=== PATIENT | female | born 1975 | race Caucasian/White ===

== ENCOUNTER 2018-06-07 01:52 | Observation (INO) ==
[2018-06-07] MEDS ORDERED: IOPAMIDOL 100 ML BOTTLE IV ONE (01:53)
[2018-06-07] MEDS ORDERED: KETOROLAC 30 MG/ML VIAL IV ONE (02:08)
[2018-06-07] MEDS ORDERED: 0.9 % SODIUM CHLORIDE 1,000 ML IV ONE ×2 (02:08→04:04)
[2018-06-07] MEDS ORDERED: ONDANSETRON 4 MG/2 ML VIAL IV ONE ×2 (02:08→05:54)
[2018-06-07 03:21] LABS: Mean Cell Volume 62.6 fL (80.0-100.0); Mean Corpuscular HGB Conc 28.8 g/dL (31.0-36.0); Platelet Count 343 K/mcL (140-440); RBC 4.13 M/mcL (4.00-5.20); Red Cell Distribution Width 20.9 % (11.5-14.5)
[2018-06-07 03:22] LABS: ALT/SGPT 26 U/l (0-40); Albumin/Globulin Ratio 1.6 (1.0-2.3); Alkaline Phosphatase 121 U/L (39-117); Blood Urea Nitrogen 11 mg/dl (6-20); Lipase 15 U/L (7-60)
[2018-06-07] MEDS ORDERED: PANTOPRAZOLE 40 MG VIAL IV ONE ×2 (03:30→08:42)
[2018-06-07 03:39] LABS: Basophils % (Auto) 0 % (0.0-2.0)
--- NOTE | 2018-06-07 04:18 | Emergency Department Note ---
Nausea/Vomiting/Diarrhea HPI - General Chief complaint: Nausea/Vomiting/Diarrhea Stated complaint: Nausea/Diarrhea Time Seen by Provider: 06/07/18 03:35 - History of Present Illness HPI Narrative: This pleasant 43-year-old female presents with epigastric area pain in the few dark stools. Her pain is described as aching and burning in nature. She is also felt rather dehydrated and very thirsty for this last week cannot seem to get enough water to drink. In the last 1-1/2 days she has had some diarrhea up to 6 times per day. She takes omeprazole chronically 80 mg twice daily; has been taking this from [id number] due to changes in her insurance and changes in her primary care. She reports a history of really bad ulcers that. She has seen Dr. Pyle. She has a history of anemia. She has felt sweaty during the night illness last night. No fevers. REVIEW OF SYSTEMS: No chest pains. No shortness of breath. Has vomited 3 times in the last 6 hours with some dry heaves. Denies dysuria. Has had some new low back pain or flank area pain that feels like kidney pain Has frequent migraine headaches "all the time". She does feel weak now. No dizziness or imbalance. No anxiety or depression. - Related Data Home Medications Medication Instructions Recorded Confirmed No Known Home Meds 06/07/18 06/07/18 Allergies Allergy/AdvReac Type Severity Reaction Status Date / Time Penicillins Allergy Severe Hives Verified 06/07/18 01:57 Past Medical History - Past Medical History [facility] Narrative: Past Surgical History (Last Updated 06/07/18 @ 04:25 by Kendall Martinez DO) S/P appendectomy (Acute) Medical History (Last Updated 06/07/18 @ 04:14 by Kendall Martinez DO) Cigarette smoker (Chronic) GERD (gastroesophageal reflux disease) (Chronic) PUD (peptic ulcer disease) (Chronic) Anemia (Chronic) Headache, migraine (Chronic) History of diverticulitis (Chronic) History of pyelonephritis (Chronic) Medical history: Reports: other (Denies pancreatitis and kidney stones and gallbladder disease.). Denies: asthma, cancer, DM, hypertension, hypothyroidis m, renal disease Psychiatric history: Denies: anxiety, depression Surgical history ED: Reports: appendectomy - Social History smoking status: Current every day smoker (1 pack/day) Alcohol use: Reports: None Drug use: Reports: none. Denies: marijuana Physical Exam Limitations: no limitations General appearance: alert, in no apparent distress Head: atraumatic, normocephalic Eye: Present: normal appearance, PERRL, EOMI. Absent: scleral icterus, conjunctival injection ENT: normal oropharynx, mucous membranes dry (slight or mildly) Neck: Present: trachea midline. Absent: lymphadenopathy, thyromegaly Respiratory: Present: normal lung sounds bilaterally. Absent: respiratory distress, wheezes, stridor, accessory muscle use, prolonged expiratory phase Cardiovascular: Present: regular rate, normal rhythm. Absent: systolic murmur, diastolic murmur Abdominal: Present: soft, tenderness. Absent: distention, guarding, rebound, rigidity, organomegaly, mass Abdominal tenderness: Present: epigastrium, moderate Rectal: Present: normal rectal tone, heme (-) stool, other (Has a collarette of puffy tissue around the anal opening without erythema and not specifically he morrhoidal segmental lesion.) Extremities: Absent: pedal edema, pretibial edema, calf tenderness Back: Absent: CVA tenderness (R), CVA tenderness (L), spinous process tenderness Neurological: Present: alert, oriented X3 Psychiatric: Present: normal affect, normal mood, serious Skin: Present: warm, dry Course Vital Signs Temperature 97.7 F 06/07/18 01:53 Pulse Rate 72 06/07/18 01:53 Respiratory Rate 22 06/07/18 01:53 Blood Pressure 144/61 06/07/18 01:53 Pulse Oximetry (%) 98 06/07/18 01:53 Temperature 97.7 F 06/07/18 01:53 Pulse Rate 78 06/07/18 08:46 Respiratory Rate 16 06/07/18 08:46 Blood Pressure 140/73 06/07/18 08:46 Pulse Oximetry (%) 97 06/07/18 08:46 Nausea/Vomiting/Diarrhea - [facility] Narrative Medical decision making narrative: 3:37 AM Obvious severe anemia with microcytosis and epigastric area pain on background history of reported severe PUD. Needs admission for red blood cells infusions and monitoring and probable upper scope. C. difficile also ordered. Also UA. 4:15 AM I spoke with Dr. King who requested CT scan abdomen and pelvis to be done first before accepting for admission. INR is 1.0. 6:25 AM Call from radiologist includes that patient has 6.3 cm cystic lesion on the right ovary that is not all that well characterized. There is small to moderate free fluid in various areas. Suggestion is to obtain pelvic ultrasound and Ca- 125. Patient also recently needed additional pain control and morphine 2 mg was given. 7:45 AM approximately Ultrasound demonstrates a 7 cm right ovarian cyst with one septation. There is extra abnormal fluid in the pelvis of uncertain etiology or cause or source. 8:40 AM A POC Chem-8 was done to recheck her hematocrit and has has gone from 25.9 down to 24.0; fluids and at this point are not normal saline 1200 cc. I spoke with Stacey Haskins regarding this patient and they, GI, with Dr. Platt, will try to see patient and fit her in. Will try to have hospitalist receive this patient for inpatient care, pending now is his return call. A second bolus of Protonix 80 mg IV ordered. - Medical Records Medical records reviewed: Yes I reviewed the patient's medical records. - Lab Data Lab results reviewed: Yes I reviewed the patient's lab results. Result diagrams: 06/07/18 02:15 06/07/18 02:15 Lab Results 06/07/18 06/07/18 06/07/18 Range/Units 02:15 02:15 04:10 WBC 7.2 (4.5-11.0) K/mcL RBC 4.13 (4.00-5.20) M/mcL Hgb 7.5 L (12.0-15.0) g/dL Hct 25.9 L (36.0-48.0) % POC Hct (36.0-48.0) % MCV 62.6 L (80.0-100.0) fL MCH 18.1 L (26.0-34.0) pg MCHC 28.8 L (31.0-36.0) g/dL RDW 20.9 H (11.5-14.5) % Plt Count 343 (140-440) K/mcL MPV 7.9 (7.4-10.4) fL Gran % 74.0 (38.0-78.0) % Lymph % (Auto) 17.0 (15.5-49.0) % Rawlins % (Auto) 5.0 (1.0-12.0) % Eos % (Auto) 4.0 (0.0-7.0) % Baso % (Auto) 0 (0.0-2.0) % POC PT 11.8 L (11.9-14.5) sec POC INR 1.0 (0.9-1.2) POC Sodium (133-145) mmol/L Sodium 139 (133-145) mmol/L POC Potassium (3.3-5.1) mmol/L Potassium 3.7 (3.3-5.1) mmol/L POC Chloride (96-108) mmol/L Chloride 100 (96-108) mmol/L Carbon Dioxide 25 (22-30) mmol/L POC Total CO2 (22-30) mmol/L Anion Gap 14.0 (8-16) POC BUN (6-20) mg/dl BUN 11 (6-20) mg/dl Creatinine 0.5 L (0.6-1.1) mg/dl POC Creatinine (0.6-1.1) mg/dl GFR Calculation 120 Glucose 104 (70-105) mg/dL POC Glucose (70-105) mg/dL Calcium 9.1 (8.6-10.4) mg/dl POC WB Ioniz Calcium (1.16-1.32) mmol/L Total Bilirubin 0.3 (0.0-1.0) mg/dL AST 15 (0-37) U/l ALT 26 (0-40) U/l Alkaline Phosphatase 121 H (39-117) U/L Total Protein 6.5 (5.9-8.4) gm/dL Albumin 4.0 (3.2-5.2) gm/dL Globulin 2.5 (2.2-3.7) gm/dL Albumin/Globulin Ratio 1.6 (1.0-2.3) Lipase 15 (7-60) U/L 06/07/18 Range/Units 08:17 WBC (4.5-11.0) K/mcL RBC (4.00-5.20) M/mcL Hgb (12.0-15.0) g/dL Hct (36.0-48.0) % POC Hct 24.0 L (36.0-48.0) % MCV (80.0-100.0) fL MCH (26.0-34.0) pg MCHC (31.0-36.0) g/dL RDW (11.5-14.5) % Plt Count (140-440) K/mcL MPV (7.4-10.4) fL Gran % (38.0-78.0) % Lymph % (Auto) (15.5-49.0) % Rawlins % (Auto) (1.0-12.0) % Eos % (Auto) (0.0-7.0) % Baso % (Auto) (0.0-2.0) % POC PT (11.9-14.5) sec POC INR (0.9-1.2) POC Sodium 139 (133-145) mmol/L Sodium (133-145) mmol/L POC Potassium 3.8 (3.3-5.1) mmol/L Potassium (3.3-5.1) mmol/L POC Chloride 104 (96-108) mmol/L Chloride (96-108) mmol/L Carbon Dioxide (22-30) mmol/L POC Total CO2 23 (22-30) mmol/L Anion Gap (8-16) POC BUN 8 (6-20) mg/dl BUN (6-20) mg/dl Creatinine (0.6-1.1) mg/dl POC Creatinine 0.4 L (0.6-1.1) mg/dl GFR Calculation Glucose (70-105) mg/dL POC Glucose 78 (70-105) mg/dL Calcium (8.6-10.4) mg/dl POC WB Ioniz Calcium 1.02 L (1.16-1.32) mmol/L Total Bilirubin (0.0-1.0) mg/dL AST (0-37) U/l ALT (0-40) U/l Alkaline Phosphatase (39-117) U/L Total Protein (5.9-8.4) gm/dL Albumin (3.2-5.2) gm/dL Globulin (2.2-3.7) gm/dL Albumin/Globulin Ratio (1.0-2.3) Lipase (7-60) U/L - Radiology Data Radiology results reviewed: Yes I reviewed the patient's radiology results. Disposition Pt seen by SITE MONITOR/PA only: No Clinical Impression: Epigastric pain, History of peptic ulcer disease, Peritoneal fluid abnormality Ovarian cyst Qualifiers: Laterality: right Qualified Code(s): N83.201 - Unspecified ovarian cyst, right side Summary: See MEDICAL DECISION MAKING above. I spoke with Dr. King who is accepting this patient for inpatient management. GI will be consulting and are aware. Disposition: Xfer As Inpt ([facility]) Condition: Fair Referrals: Hernandez Davila ARNP [Nurse Practitioner] -
--- NOTE | 2018-06-07 09:51 | Internal Medicine Consult Note ---
Medical - CN: HPI - Data of Consult Patient: new to practice Consult date: 06/07/18 Requesting physician: Kendall Martinez Primary Care Provider: Robina John Family Provider: Robina John - Consult Narrative Reason for consult: Epigastric pain, anemia History of present illness: Ms. Alvarado is a 43 year old F smoker and poorly controlled migraineur with a history of chronic peptic ulcer disease followed by Dr. Butcher who presented to ED for epigastric pain, nausea and vomiting, and increasing trouble with nocturnal reflux despite taking omeprazole 40mg twice daily. Hgb 7.5 with microcytosis but there was not enough stool in the rectal vault to perform FOBT. She complains of burning, stabbing epigastric pain that radiates to the back and is exacerbated by eating. She is constantly nauseated and occasionally vomits bilious emesis. She denies any hematemesis, melena. She denies ASA/NSAID use. She has had ulcers for the last 6 years or so and tells me she was treated for UGI bleed in [place] with empiric H. pylori treatment and was told by Dr. Butcher she "makes too much acid". She is not aware whether or not she has been diagnosed with Wellington Escalante syndrome. She suffers from chronic intermittent diarrhea, twice weekly with up to 2 loose BMs daily. She uses Imodium. She apparently had a colonoscopy 7-8 years ago; I will attempt to find those records. She occasionally sees red blood mixed with bowel movements. Weight has been stable. She is amenorrheic. She took Depo Provera for 11 years and discontinued after her divorce. Her menstrual cycle did not return. Migraine is poorly controlled. She has nearly constant migraine. She has previously tried and failed Imitrex ("allergic"), Topamax ("made me a lunatic"), amitriptyline ("didn't work"). CC: All systems: reviewed and no additional remarkable complaints except as stated Review of systems: see HPI Medical - CN: PMH Medical history: Migraine, peptic ulcer disease Surgical history: Appendectomy Pertinent family history: Mother with iritis Social history: . Works as an assistant athletic trainer. Does not use alcohol. Smokes a pack of cigarettes daily. Denies recreational drug use. Medical - CN: Meds Home Medications Medication Instructions Recorded Confirmed Type No Known Home Meds 06/07/18 06/07/18 History Allergies Allergy/AdvReac Type Severity Reaction Status Date / Time Penicillins Allergy Severe Hives Verified 06/07/18 01:57 Medical - CN: Exam - Constitutional Vitals: Temp Pulse Resp BP Pulse Ox 97.7 F 67 15 125/83 96 06/07/18 01:53 06/07/18 09:32 06/07/18 09:32 06/07/18 09:32 06/07/18 09:32 General appearance: average body habitus, cooperative, mild distress - Head Head exam: Present: atraumatic, normal inspection, normocephalic - ENT ENT exam: Present: mucous membranes dry - Neck Neck exam: Present: normal inspection - Respiratory Respiratory exam: Present: normal respiratory exam, CTAB - Cardiovascular Cardiovascular exam: Present: normal rate and rhythm. Absent: gallop, rubs, systolic murmur - GI/Abdominal GI/Abdominal exam: Present: normal bowel sounds, soft, tenderness. Absent: hernia, organomegaly, rebound, rigid Additional comments: Mild epigastric and lower abdominal tenderness. No peritoneal signs. - Neurological Exam Neurological exam: Present: alert, oriented X3 - Psychiatric Additional comments: Defensive during interview - Skin Skin exam: Present: dry, intact, pallor, warm. Absent: diaphoretic Medical - CN: Result - Labs CBC & Chem 7: 06/07/18 02:15 06/07/18 02:15 Labs: Short CBC 06/07/18 Range/Units 02:15 WBC 7.2 (4.5-11.0) K/mcL Hgb 7.5 L (12.0-15.0) g/dL Hct 25.9 L (36.0-48.0) % Plt Count 343 (140-440) K/mcL BMP 06/07/18 02:15 Sodium 139 Potassium 3.7 Chloride 100 Carbon Dioxide 25 BUN 11 Creatinine 0.5 L Glucose 104 Calcium 9.1 Liver Function 06/07/18 Range/Units 02:15 Total Bilirubin 0.3 (0.0-1.0) mg/dL AST 15 (0-37) U/l ALT 26 (0-40) U/l Alkaline Phosphatase 121 H (39-117) U/L Albumin 4.0 (3.2-5.2) gm/dL Medical - CN: A/P (1) Epigastric pain Status: Acute (2) Anemia Problem details: chronic or recurrent Status: Chronic Assessment and plan: We will further evaluate her epigastric pain and anemia with EGD. Recurrent peptic ulcer disease, celiac, Crohn's, abdominal migraine are on the differential among others. We will check a fasting gastrin (allowing for some elevation while on PPI) and salicylate level. We will obtain small bowel biopsies to check for malabsorption, specifically celiac disease. If the above studies are unremarkable, colonoscopy and Pill CAm will be undertaken. In light of her history of peptic ulcer disease, tobacco cessation was encouraged. She will be admitted following EGD and we will follow her along with Dr. King.
--- NOTE | 2018-06-07 10:07 | Internal Med History&Physical ---
Medical - H&P: HPI Patient information: Note initiated : 06/07/18 at 10:04 am Service Date, if different from initiated Date: [] Patient: Emma Alvarado a 43 y/o F admitted on for Nausea/Diarrhea. Chief Complaint: [] History of present illness: Ms. Alvarado is a 43 year old F with history of chronic peptic ulcer disease follows with Dr. Pyle, history of chronic migraines, presents to the emergency room for evaluation of abdominal pain since early this morning. Pain started last week she has been trying to control it with diet as well as using [id number] omeprazole. Pain is epigastric in nature burning stabbing it into the back moderate to severe worse with eating spicy food helps with some local heat as well as omeprazole. Patient also noticed some dark brown stools, she also had some nausea vomiting but no blood in the vomitus, last bowel movement had some blood in it. The patient denies any fever chills cough chest pain shortness of breath, she has chronic headaches no change in vision denies any urinary complaints no new back pain no new joint pain skin rashes. No behavioral psychiatric issues reported. In the ER on presentation patient was hemodynamically stable, hemoglobin was 7 .5, around 2 g drop since a year ago. CT abdomen and pelvis was done which is showing some free fluid in the pelvis, and an ovarian cyst official report is pending, pelvic ultrasound was advised by the radiologist it seems in the ED caudate and according to the note it shows an ovarian cyst with single septae. Patient received 1 unit of blood in the ER, hematocrit in the point of care did not change, patient was admitted to the hospital for further management GI was consulted in the ED. Patient was getting a second unit of blood. 80 mg of pantoprazole x2 have been given in the ED All systems: reviewed and no additional remarkable complaints except as stated (as per hpi rest negative) Medical - H&P: PMH Medical history: Medical History (Last Updated 06/07/18 @ 04:14 by Kendall Martinez DO) Cigarette smoker (Chronic) GERD (gastroesophageal reflux disease) (Chronic) PUD (peptic ulcer disease) (Chronic) Anemia (Chronic) Headache, migraine (Chronic) History of diverticulitis (Chronic) History of pyelonephritis (Chronic) Surgical history: Past Surgical History (Last Updated 06/07/18 @ 04:25 by BRE Wallace S/P appendectomy (Acute) Family history: reviewed and not pertinent Social history: smoker denie recreational drug use denies etoh use Medical - H&P: Meds Home Medications Medication Instructions Recorded Confirmed Type No Known Home Meds 06/07/18 06/07/18 History Allergies Allergy/AdvReac Type Severity Reaction Status Date / Time Penicillins Allergy Severe Hives Verified 06/07/18 01:57 Medical - H&P: Exam - Constitutional Vitals: Temp Pulse Resp BP Pulse Ox 97.7 F 83 16 119/72 95 06/07/18 01:53 06/07/18 09:47 06/07/18 09:47 06/07/18 09:47 06/07/18 09:47 Exam: GENERAL: The patient is a well-developed, well-nourished in no apparent distress. Is alert and oriented x3. VITAL SIGNS: Reviewed and as noted elsewhere. HEENT: Head is normocephalic and atraumatic. Extraocular muscles are intact. Pupils are equal, round, and reactive to light. Nares appeared normal. Mouth appears any without lesions. Mucous membranes are moist. NECK: Normal to inspection, Supple, No lymphadenopathy or thyromegaly. LUNGS: Air entry equal on both sides, no wheezing, crackles or rhonchi noted. No accessory muscles of respiration HEART: Regular rate and rhythm normal, S1 and S2 heard, no Gallop, S3 or Rub Noted, No Gross murmur heard. ABDOMEN: Soft, mild epigastric tenderness, but nondistended. Positive bowel sounds. No hepatosplenomegaly was noted. EXTREMITIES: No cyanosis, clubbing, rash, lesions or edema. NEUROLOGIC: Cranial nerves II through XII are grossly intact. Motor and Sensory System Grossly Intact PSYCHIATRIC: Normal affect, Normal Mood. Appropriate Behavior. SKIN: No ulceration or wounds noted, No jaundice, No rash noted. Medical - H&P: Reslt - Labs CBC & Chem 7: 06/07/18 02:15 06/07/18 02:15 Labs: Short CBC 06/07/18 Range/Units 02:15 WBC 7.2 (4.5-11.0) K/mcL Hgb 7.5 L (12.0-15.0) g/dL Hct 25.9 L (36.0-48.0) % Plt Count 343 (140-440) K/mcL BMP 06/07/18 02:15 Sodium 139 Potassium 3.7 Chloride 100 Carbon Dioxide 25 BUN 11 Creatinine 0.5 L Glucose 104 Calcium 9.1 Liver Function 06/07/18 Range/Units 02:15 Total Bilirubin 0.3 (0.0-1.0) mg/dL AST 15 (0-37) U/l ALT 26 (0-40) U/l Alkaline Phosphatase 121 H (39-117) U/L Albumin 4.0 (3.2-5.2) gm/dL Medical - H&P: A/P - Narrative A/P Narrative: a/P Abdominal pain GI bleed Peptic Ulcer disease Acute blood loss anemia Migraine headaches Plan admit to pcu status trend hb gi consulted, EGD today npo for now. IV PPI Gastrin level to be checked by GI salyciate level ordered by GI FUll code SCD for dvt prophylaxis.
[2018-06-07] MEDS ORDERED: NICOTINE 21 MG PATCH TOPICAL ONE ×2 (10:13→12:04)
[2018-06-07] MEDS ORDERED: KETAMINE HCL 50 MG/ML ML IV PRN ×2 (10:55→17:05)
[2018-06-07] MEDS ORDERED: MIDAZOLAM 2 MG/2 ML VIAL IV SCH ×2 (11:00→17:05)
[2018-06-07] MEDS ORDERED: PROPOFOL 200 MG/20 ML VIAL IV SCH ×2 (11:00→17:05)
[2018-06-07] MEDS ORDERED: ONDANSETRON 4 MG/2 ML VIAL IV PRN (12:04)
[2018-06-07] MEDS ORDERED: METOCLOPRAMIDE 10 MG/2 ML VIAL IV PRN (12:04)
[2018-06-07] MEDS ORDERED: NALOXONE HCL 0.4 MG/ML VIAL IV PRN ×2 (12:04→17:05)
[2018-06-07] MEDS ORDERED: ACETAMINOPHEN 650 MG/65 ML BOTTLE IV PRN ×2 (12:04→17:05)
[2018-06-07] MEDS ORDERED: HYDROmorphone 2 MG/ML VIAL IV PRN (13:06)
[2018-06-07] MEDS: 0.9 % SODIUM CHLORIDE 10 ML SYRINGE IV SCH ×3 (14:09→21:03)
[2018-06-07] MEDS ORDERED: PANTOPRAZOLE 40 MG VIAL IV SCH (17:00)
[2018-06-07] MEDS ORDERED: MISOPROSTOL 100 MCG TABLET PO SCH ×2 (17:00→21:00)
[2018-06-07] MEDS: HYDROmorphone 2 MG/ML VIAL IV PRN ×3 (17:13→22:10)
--- NOTE | 2018-06-07 18:13 | Cat Scan Report ---
CLINICAL INFORMATION: Abdominal pain and nausea COMPARISON: None. TECHNIQUE: Delayed 80 cc of Isovue-300 were injected intravenously, and 60 seconds later, 0.625 mm helical slices were obtained from the mid heart through the subtrochanteric regions. Following reconstruction, 2.5 mm sagittal, coronal and axial reformatted images were processed and reviewed at bone, lung and soft tissue windows. Five minutes later, 0.625 mm helical slices were obtained from the mid heart through the kidneys and viewed at soft tissue windows.The exam was performed using radiation dose optimization techniques including, but not limited to, automated exposure control, adjustment of the mA and/or kV according to patient size and use of iterative reconstruction technique. FINDINGS: Lung bases show minimal groundglass airspace disease in both posterior lower lobes as likely atelectasis. There are also small bilateral pleural effusions. Visualized heart is unremarkable. Images through the abdomen show the liver is normal in size but inhomogeneous attenuation with equivocal periportal edema. The gallbladder and bile ducts are normal CBD is 5 mm. Both kidneys, adrenal glands, spleen, pancreas and aorta, including aortic branches, are normal in size, configuration and attenuation without focal lesion. Imaging of the pelvis shows 7.1 cm thick-walled cyst in the right ovarian region. A 7 x 4 cm anteflexed normal appearing uterus appreciated. Urinary bladder is unremarkable. Left ovary is normal: 3 cm x 2 cm A small amount of physiologic free fluid in the deep true pelvis. There is no free air or adenopathy. The gastric and duodenal wall appears thickened, but this is likely an artifact of nondistention (enteric contrast was not utilized). The small and large bowel are grossly normal. There are multiple undigested tablets scattered throughout the colon. The appendix is surgically absent. There is equivocal mesenteric edema throughout the abdomen and pelvis. Bone windows show no osseous abnormality. IMPRESSION: 1. 7.1 cm thick-walled cystic lesion in the right ovary. Follow-up ultrasound to be performed. 2. Mild ileus pattern. The GI tract is not distended with enteric contrast and difficult to evaluate. There is equivocal mesenteric edema implying potential GI tract pathology. Consider: upper and lower endoscopy. Interpreted and Authenticated by: Harrison Heath 06/07/18
--- NOTE | 2018-06-07 18:25 | Ultrasound Report ---
CLINICAL INFORMATION: 7 cm thick walled cyst in the right ovary on CT COMPARISON: Abdominal and pelvic CT 06/07/2018 FINDINGS: Uterus is anteflexed and normal in size spanning 10 x 4.5 cm. Endometrium is thickened: 6 mm. There is a 7.6 cm cyst on the right ovary with mildly thickened yet uniform arriola and no solid components. A single septation extends across the cyst. Features are benign. This cyst has enlarged the right ovary which spans 8.3 x 5.2 cm. The left ovary is normal - 2.5 x 3 cm. No free fluid IMPRESSION: 7.6 cm cyst right ovary with benign features. This is almost certainly merely an enlarged physiologic cyst. Suggest six-week follow-up ultrasound to ensure involution or stability Interpreted and Authenticated by: Harrison Heath 06/07/18
[2018-06-07] MEDS: ONDANSETRON 4 MG/2 ML VIAL IV PRN (19:57)
[2018-06-07] MEDS: METOCLOPRAMIDE 10 MG/2 ML VIAL IV PRN (22:14)
[2018-06-08] MEDS: HYDROmorphone 2 MG/ML VIAL IV PRN ×2 (01:36→04:09)
[2018-06-08] MEDS: ONDANSETRON 4 MG/2 ML VIAL IV PRN ×3 (01:44→07:39)
[2018-06-08] MEDS: METOCLOPRAMIDE 10 MG/2 ML VIAL IV PRN (04:15)
[2018-06-08] MEDS ORDERED: PROMETHAZINE 25 MG/ML VIAL IV PRN (04:46)
[2018-06-08] MEDS ORDERED: PROMETHAZINE 25 MG/ML VIAL ONE (04:50)
[2018-06-08] MEDS: 0.9 % SODIUM CHLORIDE 10 ML SYRINGE IV SCH (05:00)
[2018-06-08] MEDS ORDERED: PANTOPRAZOLE 40 MG VIAL IV SCH (07:30)
[2018-06-08] MEDS ORDERED: NICOTINE 21 MG PATCH TOPICAL SCH ×2 (10:00)
--- NOTE | 2018-06-08 10:56 | Discharge Summary ---
Medical - DS: Prov Patient information: Note initiated : 06/08/18 at 10:54 am Service Date, if different from initiated Date: [] Patient: Emma Alvarado a 43 y/o F admitted on 06/07/18 for Nausea/Diarrhea. Chief Complaint: [] Date of admission: 06/07/18 11:40 Discharge date: 06/08/18 Primary care physician: Robina John Consults: 06/07/18 08:39 Consult to Physician [CONS] Stat Comment: Consulting Provider: Stacey Haskins Reason For Exam: Physician to Consult 06/07/18 08:42 Consult to Physician [CONS] Stat Comment: Consulting Provider: Marquis King Reason For Exam: Admit Discharging clinician: Marquis King Medical - DS: Meds - Discharge Medications Prescriptions: Misoprostol [Cytotec] 100 mcg PO QID #120 tab Pantoprazole [Protonix] 40 mg PO BIDAC #56 tab Active and Home Medications: Home Medications No Known Home Meds 06/07/18 [History Confirmed 06/07/18 Last Taken Unknown] Medical - DS: Hosp Hospital course: Ms. Alvarado is a 43 year old F with history of chronic peptic ulcer disease follows with Dr. Pyle, history of chronic migraines, presents to the emergency room for evaluation of abdominal pain since early this morning. Pain started last week she has been trying to control it with diet as well as using soob-rbu-kuffzio omeprazole. Pain is epigastric in nature burning stabbing it into the back moderate to severe worse with eating spicy food helps with some local heat as well as omeprazole. Patient also noticed some dark brown stools, she also had some nausea vomiting but no blood in the vomitus, last bowel movement had some blood in it. The patient denies any fever chills cough chest pain shortness of breath, she has chronic headaches no change in vision denies any urinary complaints no new back pain no new joint pain skin rashes. No behavioral psychiatric issues reported. In the ER on presentation patient was hemodynamically stable, hemoglobin was 7.5, around 2 g drop since a year ago. CT abdomen and pelvis was done which is showing some free fluid in the pelvis, and an ovarian cyst official report is pending, pelvic ultrasound was advised by the radiologist it seems in the ED caudate and according to the note it shows an ovarian cyst with single septae. Patient received 1 unit of blood in the ER, hematocrit in the point of care did not change, patient was admitted to the hospital for further management GI was consulted in the ED. Patient was getting a second unit of blood. 80 mg of pantoprazole x2 have been given in the ED 06/08 Patient observed overnight, had some nausea, responded to phenergan, Reviewed case with GI, stable for D/C EGD showed chr large duodenal ulcers, To continue ppi, start on misopristol, outpatient GI follow up Hb stable from yesterday stable for discharge Discharge diagnosis: Chr duodenal ulcers, NSAID related - Time Spent with Patient Total time spent providing and/or coordinating discharge services: Less than 30 minutes Medical - DS: Exam - Constitutional Vitals: Vital Signs Temp Pulse Pulse Resp BP BP Pulse Ox 06/08/18 08:00 97.3 F 58 L 12 124/72 98 06/08/18 04:43 97.9 F 62 12 127/68 93 06/07/18 23:34 97.8 F 53 L 12 103/56 96 06/07/18 19:12 97.9 F 68 12 123/78 95 06/07/18 17:01 14 123/81 06/07/18 17:00 5 L 06/07/18 16:46 11 L 116/67 06/07/18 16:31 13 123/71 06/07/18 16:16 64 11 L 127/70 93 06/07/18 16:01 97.3 F 64 15 128/73 93 06/07/18 16:00 64 13 93 06/07/18 15:46 69 9 L 111/82 95 06/07/18 15:31 67 14 132/76 96 06/07/18 15:17 61 15 96 06/07/18 15:16 59 L 15 119/80 96 06/07/18 15:01 52 L 16 115/66 95 06/07/18 15:00 59 L 57 L 15 119/80 95 06/07/18 14:46 65 15 131/76 96 06/07/18 14:31 67 13 133/88 93 06/07/18 14:28 70 14 134/83 93 06/07/18 14:17 66 12 94 06/07/18 14:00 60 16 134/83 95 06/07/18 13:57 60 16 135/70 94 06/07/18 13:50 68 17 96 06/07/18 13:46 63 16 147/87 100 06/07/18 13:43 59 L 14 147/87 100 06/07/18 13:35 60 17 144/76 100 06/07/18 13:34 60 16 144/76 99 06/07/18 13:31 101 H 60 25 H 135/104 144/76 100 06/07/18 13:20 74 20 137/88 95 06/07/18 13:01 60 16 135/70 94 06/07/18 12:05 65 16 94 06/07/18 12:01 61 13 121/74 94 06/07/18 11:55 99.7 F H 77 16 126/78 95 06/07/18 11:52 126/78 06/07/18 11:50 97.7 F 64 13 121/80 96 06/07/18 11:40 99.7 F H 77 16 126/78 94 06/07/18 11:15 64 13 121/80 96 06/07/18 11:00 69 21 127/78 95 06/07/18 10:56 67 18 122/76 94 Intake and Output 06/07/18 06/08/18 06/08/18 21:59 05:59 13:59 Intake Total 235 660 Output Total 300 300 Balance -65 360 Intake: IV 65 Oral 170 660 Output: Void Amount 300 300 Other: Urine Appearance Clear Urine Color Dark Kavita # Voids 1 1 Weight 112 lb 9.6 oz Additional comments: Constitutional; Afebrile, cooperative, alert, not in distress. Respiratory system: Air Entry equal on both sides, No crackles or wheezing, no rhonchi. CVS- Rate rhythm regular, S1,S2 heard, no gallop, no rub. Abdomen- Soft nontender abdomen, no organomegaly, no tenderness, no guarding or rigidity, HOUSE [employer]ECTIVE- AOOx3, moving all extremities, no gross focal deficit noted. Medical - DS: Data Labs on day of discharge: Labs from last 24 hours 06/08/18 06/07/18 06/07/18 06:26 20:54 16:13 Hgb 9.1 L 8.6 L 8.7 L Hct 30.2 L 28.6 L 29.3 L Medical - DS: A/P - Patient/Caregiver Discharge Instructions Activity: increase activity as tolerated Diet: Regular Diet Additional Instructions: Do not use NSAIDS, Aspirin Go to ER if any blood in stools Take medications as prescribed He has chronic ulcers in your stomach and duodenum, these are likely because of use of aspirin. Please do not use aspirin. These ulcers will heal with the use of a medication called misoprostol take 1 tablet 4 times a day. Follow-up with your GI specialist in gastroenterology in 2-4 weeks Follow up with PCP in 1 week - Follow up Plan Follow up with: Hernandez Davila ARNP [Nurse Practitioner] - Omar Butcher MD [Physician] - Disposition: Home, Self-Care Prognosis: Fair Rehab Potential: Fair I certify that the patient requires SNF services: No Overall status at discharge: patient is progressing back to baseline Medical - DS: Qual - VTE Deep Vein Thrombosis/Pulmonary Embolism Present on Admission: No
--- NOTE | 2018-06-08 17:07 | EGD Procedure Note ---
EGD Procedure Notes - Procedure Information Patient information: Note initiated : 06/08/18 at 5:05 pm Service Date: 06/07/18 Patient: Emma Alvarado 43 y/o F admitted on 06/07/18 for Nausea/Diarrhea. Pre-op diagnosis general: Anemia. Abdominal pain. Post-Op Diagnosis general: Gastric and duodenal ulcer. Procedure: Esophogogastroduodenoscopy Procedure Narrative: The procedure, alternatives and risks were discussed with the patient and the patient's questions were answered. With endoscopist-administered intravenous sedation, the Olympus video endoscope was introduced into the esophagus. The esophagus, stomach, and duodenum were examined sequentially. The esophagus appears normal. No hiatal hernia seen. Multiple small prepyloric gastric ulcer were seen. This was biopsied. A large duodenal bulb ulcer was also seen. The scope was withdrawn. Assessment: Gastric and duodenal ulcer. Salicylate level was positive, despite the patient's denial of using aspirin. Suspect ASA-induced PUD. She should avoid ASA, NSAIDS and remain on high dose omeprazole and misoprostol.
--- NOTE | 2018-06-09 12:27 | Surgical Pathology Report ---
HISTOLOGY SPECIMEN MICROSCOPIC DIAGNOSIS STOMACH, ULCER, BIOPSY: -- ULCERATED GASTRIC MUCOSA WITH ACUTE INFLAMMATION AND INFLAMMATORY DEBRIS. -- NO HELICOBACTER TYPE ORGANISMS IDENTIFIED (ALCIAN YELLOW STAIN WITH ADEQUATE TECHNICAL CONTROL). (RLF:shavonne) CLINICAL HISTORY Anemia; abdominal pain. PROCEDURAL IMPRESSION Gastric and duodenal ulcers. GROSS DESCRIPTION Received in formalin labeled gastric ulcer biopsy, are four pale everett tissue fragments 0.2 to 0.3 cm. Totally submitted - one cassette. (STS:adj) Electronically Signed by: eJanie Garcia M.D.
== END 2018-06-08 11:35 | disposition home or self-care (01) ==
LOC: ED 01:52 → INTOOBSV 11:40 → ICU 11:40 → MEDSUR 18:34
PROVIDERS: ADMIT Internal Medicine; ATTEND Internal Medicine